=== PATIENT | female | born 1990 | race Caucasian/White ===

== ENCOUNTER 2018-03-09 09:19 | Emergency (ER) | payer OTHER ==
[~2018-03-09] VITALS: Ht 154.9 cm; Wt 68.2 kg
[2018-03-09] MEDS ORDERED: DEXAMETHASONE SOD PHOS 4 MG/ML 5 ML VIAL IM ONE (10:30)
[2018-03-09] MEDS ORDERED: DiphenhydrAMINE HCL 50 MG/ML VIAL IM ONE (10:30)
[2018-03-09 11:25] VITALS: BP 128/80
== END 2018-03-09 11:37 | disposition home or self-care (01) ==
LOC: EMS 09:24
DX: S00.261A Insect bite (nonvenomous) of right eyelid and periocular area, initial encounter (principal); H02.842 Edema of right lower eyelid; W57.XXXA Bitten or stung by nonvenomous insect and other nonvenomous arthropods, initial encounter; Y93.89 Activity, other specified; Y92.89 Other specified places as the place of occurrence of the external cause; Y99.8 Other external cause status
CPT/HCPCS: 96372; 99284; J1100; J1200